=== PATIENT | female | born 1995 | race Two or more races ===

== ENCOUNTER 2022-12-02 21:23 | Emergency (ER) | payer OTHER ==
[2022-12-02 21:51] VITALS: BP 108/73; PULSE 46; RESP 18; TEMP 98.7; BMI 27.4
[2022-12-02] MEDS ORDERED: predniSONE 20 MG TABLET (UD) PO ONE (21:58)
[2022-12-02] MEDS ORDERED: KETOROLAC TROMETHAMINE 60 MG/2 ML VIAL IM ONE (21:58)
[2022-12-02] MEDS ORDERED: CYCLOBENZAPRINE HCL 10 MG TABLET (FP) PO ONE (21:59)
[2022-12-02] MEDS ORDERED: KETOROLAC TROMETHAMINE 60 MG/2 ML VIAL ONE (22:06)
[2022-12-02] MEDS ORDERED: CYCLOBENZAPRINE HCL 5 MG TABLET ONE (22:06)
== END 2022-12-02 22:40 | disposition home or self-care (01) ==
LOC: FER 21:23
PROC: 3E0233Z Introduction of Anti-inflammatory into Muscle, Percutaneous Approach (ICD-10-PCS; principal; 2022-12-02)
DX: M54.6 Pain in thoracic spine (principal); G89.29 Other chronic pain
CPT/HCPCS: 99284-25